=== PATIENT | female | born 1990 | race African-American/Black ===

== ENCOUNTER 2020-07-01 04:57 | Inpatient (IN) | payer MEDICAID ==
[~2020-07-01] VITALS: Ht 162.6 cm; Wt 77.1 kg
--- NOTE | 2020-07-01 05:05 | NUR ---
Pt bibra c/o abd pain with NV [id number]. pt [id number] breathing evenly and unlabored. Pt states that she is 9 weeks . Pt grimacing and positioning with knees to stomach to ease pain. Pt skin warm, dry, and intact. 20g iv placed in rt ac. Pt blood obtained and sent to lab. Pt connected to monitor and pox. pt given blanket and call light within reach.
--- NOTE | 2020-07-01 05:18 | NUR ---
urine collected. sent to lab
[2020-07-01] MEDS ORDERED: ONDANSETRON HCL/PF 4 MG/2 ML VIAL IVP ONE (05:30)
[2020-07-01] MEDS ORDERED: IV NS 0.9% 1,000 ML BAG IV ONE (05:30)
[2020-07-01] MEDS ORDERED: HYDROMORPHONE INJ 2 MG/ML DISP.SYRIN IV ONE (05:30)
--- NOTE | 2020-07-01 05:30 | NUR ---
covid swab sent to lab
[2020-07-01] MEDS ORDERED: HYDROMORPHONE 1 MG/1 ML DISP.SYRIN ONE (05:34)
[2020-07-01] MEDS ORDERED: ONDANSETRON HCL/PF 4 MG/2 ML VIAL ONE (05:34)
[2020-07-01 05:37] LABS: BILIRUBIN,URINE MODERATE (NEGATIVE); COLOR,URINE YELLOW (YELLOW); LEUKOCYTE ESTERASE ,URINE NEGATIVE (NEGATIVE); NITRITE, URINE NEGATIVE (NEGATIVE); PH,URINE 5.5 (5.0-8.0); PROTEIN,URINE TRACE mg/dl (NEGATIVE); UGLUCOSE NEGATIVE (NEGATIVE)
[2020-07-01 05:48] LABS: BASOPHILS % (AUTO) 0.2 % (0.0-2.0); EOSINOPHILS % (AUTO) 0.1 % (0.0-6.0); HEMATOCRIT 35 % (33-45); HEMOGLOBIN 11.9 g/dL (11.5-14.8); LYMPHOCYTES # (AUTO) 0.8 /CMM (0.8-4.8); LYMPHOCYTES % (AUTO) 11.7 % (20.0-44.0); MEAN CORPUSCULAR HGB CONC 34 g/dl (31.0-36.0); MEAN CORPUSCULAR VOLUME 92 fL (82-100); MONOCYTES # (AUTO) 0.3 /CMM (0.1-1.30); MONOCYTES % (AUTO) 4.6 % (2.0-12.0); NEUTROPHILS # (AUTO) 5.6 /CMM (1.8-8.9); NEUTROPHILS % (AUTO) 83.4 % (43.0-81.0); PLATELET COUNT (AUTO) 272 /CMM (150-450); RED BLOOD CELL COUNT(AUTO) 3.83 MIL/uL (4.0-5.2); WHITE BLOOD COUNT (AUTO) 6.7 K/uL (4.3-11.0)
[2020-07-01 06:04] LABS: BACTERIA,URINE Few /HPF (None Seen); RBC,URINE 0-2 /HPF (0-2); SQUAMOUS EPITHELIAL CELL,UR Many /HPF (None Seen)
[2020-07-01 06:05] LABS: CALCIUM OXALATE CRYSTALS,UR Moderate /HPF (None Seen)
--- NOTE | 2020-07-01 06:15 | NUR ---
pt resting with eyes closed. Easily aroused.
--- NOTE | 2020-07-01 06:30 | NUR ---
Call from lab. Rapid covid negative.
[2020-07-01 07:02] LABS: ALBUMIN 3.7 g/dL (3.4-5.0); BILIRUBIN,DIRECT 0.2 mg/dL (0.0-0.2); BILIRUBIN,TOTAL 0.4 mg/dL (0.2-1.0); CALCIUM, SERUM 9.4 mg/dL (8.5-10.1); CREATININE 1.1 mg/dL (0.6-1.3); POTASSIUM 3.3 mmol/L (3.5-5.1); TOTAL PROTEIN, SERUM 7.9 g/dL (6.4-8.2)
--- NOTE | 2020-07-01 07:20 | NUR ---
gave report to laila skinner for kenia
--- NOTE | 2020-07-01 07:26 | NUR ---
called dr nolasco for dr humaira bradford surgery consult
--- NOTE | 2020-07-01 07:29 | NUR ---
called [facility]. online merchandiser was paged
--- NOTE | 2020-07-01 07:31 | NUR ---
MOVE PACKET GIVEN TO ADMITING
--- NOTE | 2020-07-01 07:36 | NUR ---
TEXTED DR. VELAZQUEZ FOR MRI APPROVAL.
--- NOTE | 2020-07-01 08:36 | NUR ---
MRI APPROVED,HELP DESK REP NOTIFIED VIA TEXT.
--- NOTE | 2020-07-01 09:30 | NUR ---
seen by dr nolasco
--- NOTE | 2020-07-01 10:03 | NUR ---
out for mri
[2020-07-01] MEDS ORDERED: IV D5/0.45 NACL 1,000 ML IV PRN (11:00)
[2020-07-01] MEDS ORDERED: ONDANSETRON HCL/PF 4 MG/2 ML VIAL IVP PRN (11:00)
[2020-07-01] MEDS ORDERED: ACETAMINOPHEN 325 MG TABLET PO PRN (11:00)
[2020-07-01] MEDS ORDERED: HYDROMORPHONE MDV 1 MG in IV D5W 50 ML IV PRN (11:00)
[2020-07-01] MEDS ORDERED: MAG HYDROX/AL HYDROX/SIMETH 30 ML UDC PO PRN (11:00)
[2020-07-01] MEDS ORDERED: MAGNESIUM HYDROXIDE 30 ML UDC PO PRN (11:00)
[2020-07-01] MEDS ORDERED: HYDROMORPHONE INJ 2 MG/ML DISP.SYRIN ONE (11:21)
[2020-07-01] MEDS: HYDROMORPHONE 1 MG/1 ML DISP.SYRIN IV PRN ×2 (11:22→18:16)
--- NOTE | 2020-07-01 11:46 | NUR ---
GOT BED 329-1 BENEDICT
[2020-07-01] MEDS: ZOSYN IVPB 3.375 G in IV D5W 50ml IV SCH ×3 (13:20→23:14)
--- NOTE | 2020-07-01 13:30 | NUR ---
bedside report given to fadumo ulloa at [place], pt was transferred to [facility]
--- NOTE | 2020-07-01 14:00 | NUR ---
MS/RN - Admission Patient is A/O x 4, c/o abdominal cramping pain WV 7/10, tender to touch on the LLQ, no distress, on room air. IVF D5 1/2 NS at 75 ml/hr infusing well on the RAC with no signs of infiltration. Skin is intact, ambulates with steady gait. All belongings accounted. Patient oriented to room and use of call light. All needs attended. Will continue with current medical management.
[2020-07-01 16:00] VITALS: BP 129/68
[2020-07-01] MEDS ORDERED: BISACODYL SUPP (10 MG) 10 MG/SUPP.RECT SUPP.RECT RC PRN (16:30)
[2020-07-01] MEDS ORDERED: BISACODYL (5 MG) 5 MG TABLET.DR PO PRN (18:00)
--- NOTE | 2020-07-01 18:54 | NUR ---
MS/RN - End of shift summary Patient was started on clear liquids, tolerated well, no c/o n/v, abdominal pain relieved by Dilaudid 1 mg IVP. Continue IVF to maintain hydration. Will continue with current medical management.
[2020-07-01 20:00] VITALS: BP 119/62
[2020-07-02] MEDS: HYDROMORPHONE 1 MG/1 ML DISP.SYRIN IV PRN ×2 (00:24→08:29)
[2020-07-02] MEDS: ZOSYN IVPB 3.375 G in IV D5W 50ml IV SCH (05:25)
--- NOTE | 2020-07-02 06:03 | NUR ---
MS RN NOTES PATIENT IN BED, ABLE TO VERBALIZE NEEDS. NO ACUTE RESPIRATORY DISTRESS NOTED. DENIES PAIN OR DISCOMFORT AT THIS TIME. IV ACCESS ON RAC #20G PATENT AND INTACT. KEPT CLEAN AND DRY. SAFETY PRECAUTIONS IN PLACE AND MAINTAINED . BED IN LOWEST LOCKED POSITION, SIDE RAILS UP X 2, CALL LIGHT AND TABLE WITHIN REACH. WILL ENDORSE TO DAY SHIFT NURSE FOR CONTINUITY OF CARE.
[2020-07-02 08:00] VITALS: BP 106/59
--- NOTE | 2020-07-02 08:25 | NUR ---
m/s catalyst operator: md visit seen and examined by dr. neri with verbal order to advance diet to regular and may give her last dose of dilaudid today and pt for discharge today as stated. pt aware. diet ordered.
[2020-07-02 08:37] LABS: CALCIUM, SERUM 8.2 mg/dL (8.5-10.1); CREATININE 1.2 mg/dL (0.6-1.3); MAGNESIUM 2.1 mg/dL (1.8-2.4); PHOSPHORUS 2.7 mg/dL (2.5-4.9); POTASSIUM 3.2 mmol/L (3.5-5.1)
[2020-07-02 08:41] LABS: ALBUMIN 2.9 g/dL (3.4-5.0); BILIRUBIN,DIRECT 0.2 mg/dL (0.0-0.2); BILIRUBIN,TOTAL 0.8 mg/dL (0.2-1.0); CALCIUM, SERUM 8.3 mg/dL (8.5-10.1); CREATININE 1.1 mg/dL (0.6-1.3); MAGNESIUM 2.1 mg/dL (1.8-2.4); PHOSPHORUS 2.7 mg/dL (2.5-4.9); POTASSIUM 3.2 mmol/L (3.5-5.1); TOTAL PROTEIN, SERUM 6.5 g/dL (6.4-8.2)
[2020-07-02 08:53] LABS: BASOPHILS % (AUTO) 0.2 % (0.0-2.0); EOSINOPHILS % (AUTO) 0.4 % (0.0-6.0); HEMATOCRIT 30 % (33-45); HEMOGLOBIN 10.1 g/dL (11.5-14.8); LYMPHOCYTES # (AUTO) 1.4 /CMM (0.8-4.8); LYMPHOCYTES % (AUTO) 13.1 % (20.0-44.0); MEAN CORPUSCULAR HGB CONC 34 g/dl (31.0-36.0); MEAN CORPUSCULAR VOLUME 91 fL (82-100); MONOCYTES # (AUTO) 0.8 /CMM (0.1-1.30); MONOCYTES % (AUTO) 7.1 % (2.0-12.0); NEUTROPHILS # (AUTO) 8.8 /CMM (1.8-8.9); NEUTROPHILS % (AUTO) 79.2 % (43.0-81.0); PLATELET COUNT (AUTO) 254 /CMM (150-450); RED BLOOD CELL COUNT(AUTO) 3.23 MIL/uL (4.0-5.2); WHITE BLOOD COUNT (AUTO) 11.1 K/uL (4.3-11.0)
--- NOTE | 2020-07-02 09:00 | NUR ---
m/s pearl digger: surgeon f/u seen and examined by dr. nolasco at this time. pt for d'c planning.
--- NOTE | 2020-07-02 09:45 | NUR ---
m/s editor house organ: notes received order from dr. neri to discharge pt if pain is controlled and diet tolerated. order acknowledged.
[2020-07-02] MEDS ORDERED: POTASSIUM CHLORIDE 20 MEQ TAB.PRT.SR PO SCH (10:00)
--- NOTE | 2020-07-02 10:00 | NUR ---
m/s materials associate: notes pt tolerated her regular diet, denies pain, nausea and vomiting. pt to call someone to pick her up.
--- NOTE | 2020-07-02 10:19 | NUR ---
m/s trim crew supervisor: notes h/l removed with tip intact.
--- NOTE | 2020-07-02 10:30 | NUR ---
m/s model and mold maker: notes discharge instructions given to pt and verbalized understanding. pt called a friend to pick her up. all belongings/valuables returned.
--- NOTE | 2020-07-02 10:55 | NUR ---
m/s brand lead: discharged discharged home in stable condition accompanied by a friend with all d'c papers and belongings/valuables.
== END 2020-07-02 11:00 | disposition home or self-care (01) | DRG 566 ==
LOC: ER 05:01 → TRANSITION 11:15 → MED 12:06
PROVIDERS: ADMIT Internal Medicine; ATTEND Internal Medicine
DX: O99.611 Diseases of the digestive system complicating pregnancy, first trimester (principal); O99.281 Endocrine, nutritional and metabolic diseases complicating pregnancy, first trimester; E87.6 Hypokalemia; Z3A.08 8 weeks gestation of pregnancy; R10.9 Unspecified abdominal pain; Z20.822 Contact with and (suspected) exposure to COVID-19; Z90.49 Acquired absence of other specified parts of digestive tract; A04.9 Bacterial intestinal infection, unspecified
CPT/HCPCS: 36415; 72195-TC; 74021; 74181-TC; 76700-TC; 76805-TC; 80048-TC; 80076-TC; 81001; 83690-TC; 83735-TC; 84100-TC; 85025-TC; 85730-TC; 87081-TC; 87086-TC; C9803; G0378; J1170; J2405; J2543; J7030; J7060